=== PATIENT | female | born 1990 ===

== ENCOUNTER 2021-08-02 23:18 | Inpatient (IN) ==
[2021-08-03] MEDS ORDERED: Naloxone 0.4 MG/ML INJ IVP PRN ×3 (00:58→14:49)
[2021-08-03] MEDS ORDERED: Ondansetron 4 MG/2 ML VIAL IVP PRN ×3 (01:05→14:49)
[2021-08-03] MEDS ORDERED: 0.9 % Sodium Chloride 1,000 ML IVC SCH (01:15)
[2021-08-03] MEDS: Piperacillin/Tazobactam 3.375 GM in 0.9 % Sodium Chloride Mini Bag 100 ML IVPB SCH ×3 (02:24→18:18)
[2021-08-03 03:41] LABS: Hemoglobin 14.2 g/dL (11.5-15.4); Mean Corpuscular Hemoglobin 30.5 pg (28.0-33.3); Mean Corpuscular Volume 92.3 fL (83.0-100.0); Mean Platelet Volume 10.3 fL (9.4-12.4); Platelet Count 275 K/mcL (140-400); Red Blood Count 4.66 M/mcL (3.82-4.97); Red Cell Distribution Width 11.9 % (11.5-14.5); White Blood Count 8.9 K/mcL (4.3-11.1)
[2021-08-03 03:44] LABS: Alanine Aminotransferase 255 Units/L (7-52); Albumin 4.1 g/dL (3.5-5.7); Albumin/Globulin Ratio 1.3 (1.1-2.2); Alkaline Phosphatase 303 Units/L (34-104); Aspartate Amino Transferase 198 Units/L (13-39); BUN/Creatinine Ratio 13 (6-26); Bilirubin,Total 2.9 mg/dL (0.3-1.0); Blood Urea Nitrogen 8 mg/dL (6-20); Calcium 9.1 mg/dL (8.6-10.3); Carbon Dioxide 23 mEq/L (23-29); Chloride 107 mEq/L (98-107); Chol/HDL Ratio 2.9 (0-4.9); Cholesterol 118 mg/dL (< 200); Globulin 3.1 g/dL (2.4-3.5); Glucose 142 mg/dL (70-105); HDL Cholesterol 41 mg/dL (40-59); LDL Cholesterol,Calculated 67 mg/dL (< 100); Osmolality,Calculated 287 (280-300); Potassium 3.6 mEq/L (3.5-5.1); Prothrombin Time 11.3 Seconds (9.4-12.1); Sodium 138 mEq/L (136-145); Total Protein 7.2 g/dL (6.4-8.9); Triglycerides 52 mg/dL (< 150); eGFR For African Americans > 60 (> 60); eGFR For Non-African Americans > 60 (> 60)
[2021-08-03 03:47] LABS: Activated Partial Thrombo Time 29.3 Seconds (26.0-36.0)
[2021-08-03] MEDS ORDERED: Scopolamine Patch 1.5 MG PATCH.TD72 TD ONE (06:00)
[2021-08-03 06:35] LABS: Hepatitis B Surface Antigen Nonreactive (Nonreactive)
[2021-08-03 07:04] LABS: Hepatitis C Virus Antibody Nonreactive (Nonreactive)
[2021-08-03 07:05] LABS: Hepatitis B Core IgM Nonreactive (Nonreactive)
[2021-08-03 07:06] LABS: Hepatitis A Antibody IgM Nonreactive (Nonreactive)
[2021-08-03] MEDS ORDERED: Nitroglycerin 0.4 MG TAB.SUBL SL PRN (09:02)
[2021-08-03] MEDS ORDERED: Albuterol 2.5 MG/3 ML NEBULIZER IH PRN (09:02)
[2021-08-03] MEDS ORDERED: *HR* HYDROmorphone PF 0.5 MG/0.5 ML SYRINGE IVP PRN (09:02)
[2021-08-03] MEDS ORDERED: *HR* FentaNYL (PF) 100 MCG/2 ML VIAL ONE (11:41)
[2021-08-03] MEDS ORDERED: *HR* Midazolam HCl 2 MG/2 ML VIAL ONE (11:41)
[2021-08-03] MEDS ORDERED: *HR* Propofol 200 MG/20 ML VIAL IVP ONE (11:42)
[2021-08-03] MEDS ORDERED: Scopolamine Patch 1.5 MG PATCH.TD72 ONE (12:01)
[2021-08-03] MEDS ORDERED: Ondansetron 4 MG/2 ML VIAL ONE (12:02)
[2021-08-03] MEDS ORDERED: Lidocaine -MPF 2% 2 ML VIAL ONE (12:02)
[2021-08-03] MEDS ORDERED: Lidocaine -MPF 4% 5 ML AMPUL ONE (12:02)
[2021-08-03] MEDS ORDERED: *HR* Rocuronium Bromide 50 MG/5 ML VIAL ONE (12:02)
[2021-08-03] MEDS ORDERED: *HR* Succinylcholine 200 MG/10 ML VIAL IVP ONE (12:02)
[2021-08-03] MEDS ORDERED: Bupivacaine 0.5%-Epi 1:200,000 50 ML VIAL ONE (12:03)
[2021-08-03] MEDS ORDERED: Ketorolac 30 MG/ML VIAL ONE (12:47)
[2021-08-03] MEDS ORDERED: *HR* HYDROMORPHONE 2 MG/ML VIAL ONE (12:55)
[2021-08-03] MEDS ORDERED: Sugammadex Sodium 200 MG/2 ML VIAL IV ONE (13:16)
[2021-08-04] MEDS: Piperacillin/Tazobactam 3.375 GM in 0.9 % Sodium Chloride Mini Bag 100 ML IVPB SCH ×3 (02:15→18:12)
[2021-08-04 06:07] LABS: Hematocrit 31.1 % (35.3-44.9); Hemoglobin 10.2 g/dL (11.5-15.4); Immature Granulocytes % 0.4 % (0-4); Lymphocytes # 0.5 K/mcL (0.6-4.6); Lymphocytes % 6.2 %; Mean Corpuscular HGB Conc 32.8 g/dL (31.6-35.5); Mean Corpuscular Hemoglobin 30.4 pg (28.0-33.3); Mean Corpuscular Volume 92.6 fL (83.0-100.0); Mean Platelet Volume 9.9 fL (9.4-12.4); Monocytes # 0.4 K/mcL (0.0-1.3); Neutrophils # 6.9 K/mcL (1.6-8.9); Platelet Count 247 K/mcL (140-400); Red Blood Count 3.36 M/mcL (3.82-4.97); Red Cell Distribution Width 12.1 % (11.5-14.5); Segmented Neutrophils % 88.4 %; White Blood Count 7.8 K/mcL (4.3-11.1)
[2021-08-04 06:26] LABS: Alanine Aminotransferase 170 Units/L (7-52); Albumin 3.3 g/dL (3.5-5.7); Albumin 3.4 g/dL (3.5-5.7); Albumin/Globulin Ratio 1.3 (1.1-2.2); Albumin/Globulin Ratio 1.4 (1.1-2.2); Alkaline Phosphatase 227 Units/L (34-104); Aspartate Amino Transferase 94 Units/L (13-39); BUN/Creatinine Ratio 16 (6-26); Bilirubin,Direct 2.5 mg/dL (0.0-0.2); Bilirubin,Indirect 1.4 mg/dL (0.0-1.0); Bilirubin,Total 3.9 mg/dL (0.3-1.0); Blood Urea Nitrogen 14 mg/dL (6-20); Calcium 8.3 mg/dL (8.6-10.3); Carbon Dioxide 23 mEq/L (23-29); Chloride 105 mEq/L (98-107); Globulin 2.5 g/dL (2.4-3.5); Glucose 151 mg/dL (70-105); Magnesium 2.1 mg/dL (1.6-2.6); Osmolality,Calculated 283 (280-300); Potassium 3.9 mEq/L (3.5-5.1); Sodium 135 mEq/L (136-145); Total Protein 5.8 g/dL (6.4-8.9); Total Protein 5.9 g/dL (6.4-8.9); eGFR For African Americans > 60 (> 60); eGFR For Non-African Americans > 60 (> 60)
[2021-08-04] MEDS ORDERED: *HR* Meperidine 25 MG/ML SYRINGE IVP PRN (13:53)
[2021-08-04] MEDS ORDERED: Ondansetron 4 MG/2 ML VIAL IVP PRN (13:53)
[2021-08-04] MEDS ORDERED: *HR* HYDROmorphone PF 0.5 MG/0.5 ML SYRINGE IVP PRN (13:53)
[2021-08-04] MEDS ORDERED: Ondansetron 4 MG/2 ML VIAL ONE (14:14)
[2021-08-04] MEDS ORDERED: Lidocaine -MPF 2% 2 ML VIAL ONE (14:14)
[2021-08-04] MEDS ORDERED: *HR* Midazolam HCl 2 MG/2 ML VIAL ONE (14:14)
[2021-08-04] MEDS ORDERED: *HR* Succinylcholine 200 MG/10 ML VIAL IVP ONE (14:14)
[2021-08-04] MEDS ORDERED: EPHEDrine 50 MG/ML VIAL ONE (15:26)
[2021-08-05 02:35] LABS: Hematocrit 27.1 % (35.3-44.9); Hemoglobin 8.9 g/dL (11.5-15.4); Immature Granulocytes % 0.2 % (0-4); Lymphocytes # 0.8 K/mcL (0.6-4.6); Lymphocytes % 9.4 %; Mean Corpuscular HGB Conc 32.8 g/dL (31.6-35.5); Mean Corpuscular Hemoglobin 30.3 pg (28.0-33.3); Mean Corpuscular Volume 92.2 fL (83.0-100.0); Mean Platelet Volume 9.9 fL (9.4-12.4); Monocytes # 0.2 K/mcL (0.0-1.3); Neutrophils # 7.1 K/mcL (1.6-8.9); Platelet Count 210 K/mcL (140-400); Red Blood Count 2.94 M/mcL (3.82-4.97); Red Cell Distribution Width 12.3 % (11.5-14.5); Segmented Neutrophils % 87.4 %; White Blood Count 8.1 K/mcL (4.3-11.1)
[2021-08-05] MEDS: Piperacillin/Tazobactam 3.375 GM in 0.9 % Sodium Chloride Mini Bag 100 ML IVPB SCH ×2 (02:50→09:36)
[2021-08-05 02:55] LABS: Alanine Aminotransferase 128 Units/L (7-52); Albumin 3.3 g/dL (3.5-5.7); Albumin/Globulin Ratio 1.3 (1.1-2.2); Alkaline Phosphatase 201 Units/L (34-104); Aspartate Amino Transferase 53 Units/L (13-39); BUN/Creatinine Ratio 16 (6-26); Bilirubin,Total 1.2 mg/dL (0.3-1.0); Blood Urea Nitrogen 10 mg/dL (6-20); Calcium 8.3 mg/dL (8.6-10.3); Carbon Dioxide 26 mEq/L (23-29); Chloride 105 mEq/L (98-107); Globulin 2.6 g/dL (2.4-3.5); Glucose 108 mg/dL (70-105); Osmolality,Calculated 284 (280-300); Sodium 137 mEq/L (136-145); Total Protein 5.9 g/dL (6.4-8.9); eGFR For African Americans > 60 (> 60); eGFR For Non-African Americans > 60 (> 60)
[2021-08-05 11:16] VITALS: O2SAT 96
[2021-08-05 11:59] VITALS: BP 106/68; PULSE 82; TEMP 97.9
== END 2021-08-05 13:28 | disposition home or self-care (01) | DRG 418 ==
LOC: 2ANU → SUATTDRO 08-03 00:39
PROVIDERS: ADMIT Internal Medicine; ATTEND Hospitalist